=== PATIENT | male | born 1955 | race Caucasian/White ===

== ENCOUNTER 2017-04-06 16:27 | Emergency (ER) | payer MEDICARE ==
[~2017-04-06 16:27] MED LIST: Sodium Chloride 0.9% 1,000 ML BAG ONE
[2017-04-06] MEDS ORDERED: Aspirin 325 MG TAB ONE (16:43)
[2017-04-06] MEDS ORDERED: Multivit, Adult Inj 10 ML VIAL ONE (16:59)
[2017-04-06 17:23] LABS: #Basophils 0.1 thou/uL (0.0-0.2); #Eosinphils 0.1 thou/uL (0.0-0.7); #Lymphocytes 2.2 thou/uL (1.20-3.40); #Monocytes 0.4 thou/uL (0.11-0.59); #Neutrophils 3.4 thou/uL (1.40-6.50); %Basophils 1.3 % (0.0-1.0); %Eosinophils 1.8 % (0.0-10.0); %Lymphocytes 35.9 % (21.0-51.0); %Monocytes 6.7 % (0.0-10.0); %Neutrophils 54.3 % (42.0-75.0); Hemoglobin 12.3 g/dL (14.0-18.0); Mean Corpuscular HGB CONC 36.3 g/dL (32.0-36.0); Mean Corpuscular Hemoglobin 34.7 pg (27.0-31.0); Mean Corpuscular Volume 95.5 fl (80.0-94.0); Platelet Count 166 thou/uL (130-400); RBC Distribution Width 10.7 % (11.5-14.5); Red Blood Cell (RBC) Count 3.56 mill/uL (4.70-6.10); White Blood Cell (WBC) Count 6.2 thou/uL (4.8-10.8)
--- NOTE | 2017-04-06 17:24 | RAD ---
EXAM: CHEST ONE VIEW 04/06/17 HISTORY: Chest pain. COMPARISON: 08/20/16. FINDINGS: Portable upright chest: Normal cardiac silhouette. Pulmonary vessels and hilum are normal. Costophrenic angles are clear. No masses or consolidation. No pneumothorax or osseous abnormalities. Possible left sided hernia with air attenuation, projecting over the left heart border. There are old healed right rib fractures. IMPRESSION: 1. No acute cardiopulmonary process. 2. Possible left sided hiatal hernia. Two view chest radiograph is recommended. POS: [facility]
[2017-04-06 17:38] LABS: Alcohol 165 mg/dL (Less than 10); Anion Gap 14 mmol/L (10-20); BUN (Urea Nitrogen) 7 mg/dL (8.4-25.7); Calc. Creatinine Clearance 0 mL/min (70-130); Calcium 7.8 mg/dL (7.8-10.44); Carbon Dioxide 19 mmol/L (23-31); Chloride 99 mmol/L (98-107); Estimated GFR-MDRD Greater than 90; Glucose 71 mg/dL (80-115); Potassium 3.4 mmol/L (3.5-5.1); Sodium 129 mmol/L (136-145)
[2017-04-06 17:45] LABS: CKMB 0.6 ng/mL (0-6.6); Troponin I Less than 0.010 ng/mL (< 0.028)
[2017-04-06 18:32] LABS: Amphetamine Not Detected (NotDetected); Barbiturates Screen Detected (NotDetected); Benzodiazepine Screen Not Detected (NotDetected); Cocaine Metabolite Screen Not Detected (NotDetected); Medtox Control Line Valid? VALID (VALID); Methadone Not Detected (NotDetected); Methamphetamine Not Detected (NotDetected); Opiate Screen Not Detected (NotDetected); Oxycodone Screen Not Detected (NotDetected); Phencyclidine (PCP) Not Detected (NotDetected); THC/Cannabinoid Screen Not Detected (NotDetected); Tricyclic Screen Not Detected (NotDetected)
== END 2017-04-06 19:34 | disposition home or self-care (01) ==
LOC: MADERS 16:27
DX: F10.129 Alcohol abuse with intoxication, unspecified (principal); Y90.6 Blood alcohol level of 120-199 mg/100 ml; F17.210 Nicotine dependence, cigarettes, uncomplicated; I63.9 Cerebral infarction, unspecified; Z79.899 Other long term (current) drug therapy
CPT/HCPCS: 36415; 71010; 80048; 80306; 80307; 82553; 83880; 84484; 85025; 93005; 96365; 96366; J7050

== ENCOUNTER 2017-09-17 12:05 | Outpatient (CLI) | payer MEDICARE ==
[2017-09-17 18:56] LABS: Folate (Folic Acid) 14.8 ng/mL (7.0-31.4)
[2017-09-18 08:10] LABS: Follow-up Chemistry Comp? YES; Follow-up Result - Chemistry REPORT FAXED
== END 2017-09-17 12:06 | disposition home or self-care (01) ==
LOC: MADLAB 12:05
PROVIDERS: ATTEND Family Medicine
DX: D75.89 Other specified diseases of blood and blood-forming organs (principal)
CPT/HCPCS: 36415; 82607; 82746

== ENCOUNTER 2019-07-07 17:41 | Emergency (ER) | payer MEDICARE ==
[2019-07-07] MEDS ORDERED: Dextrose 5 %-0.45 % NaCl 1,000 ML ONE (17:56)
[2019-07-07] MEDS ORDERED: Thiamine HCl 200 MG/2 ML VIAL ONE (17:56)
[2019-07-07] MEDS ORDERED: Multivit, Adult Inj 10 ML VIAL ONE (17:56)
[2019-07-07 18:02] LABS: #Basophils 0.1 thou/uL (0.0-0.2); #Eosinphils 0.2 thou/uL (0.0-0.7); #Lymphocytes 2.8 thou/uL (1.20-3.40); #Monocytes 0.6 thou/uL (0.11-0.59); #Neutrophils 3.2 thou/uL (1.40-6.50); %Basophils 1.8 % (0.0-1.0); %Eosinophils 3.1 % (0.0-10.0); %Lymphocytes 40.5 % (21.0-51.0); %Monocytes 8.3 % (0.0-10.0); %Neutrophils 46.4 % (42.0-75.0); Hemoglobin 12.4 g/dL (14.0-18.0); Mean Corpuscular HGB CONC 35.5 g/dL (32.0-36.0); Mean Corpuscular Hemoglobin 32.7 pg (27.0-31.0); Mean Corpuscular Volume 92.1 fL (78.0-98.0); Mean Platelet Volume 5.9 fL (7.4-10.4); Platelet Count 222 thou/uL (130-400); Red Blood Cell (RBC) Count 3.78 mill/uL (4.70-6.10)
--- NOTE | 2019-07-07 18:12 | RAD ---
PORTABLE CHEST: HISTORY: Chest pain. COMPARISON: 08/17/2017 FINDINGS: Heart size and mediastinum are within normal limits. Lungs are clear of any infiltrative process. T here are no significant bony findings. IMPRESSION: No active intrathoracic disease. POS: [facility]
[2019-07-07 18:17] LABS: Amphetamine Not Detected (NotDetected); Barbiturates Screen Not Detected (NotDetected); Benzodiazepine Screen Not Detected (NotDetected); Cocaine Metabolite Screen Not Detected (NotDetected); Medtox Control Line Valid? VALID (VALID); Methadone Not Detected (NotDetected); Methamphetamine Not Detected (NotDetected); Opiate Screen Not Detected (NotDetected); Oxycodone Screen Not Detected (NotDetected); Phencyclidine (PCP) Not Detected (NotDetected); THC/Cannabinoid Screen Not Detected (NotDetected); Tricyclic Screen Not Detected (NotDetected)
[2019-07-07 18:18] LABS: ALT (SGPT) 11 U/L (8-55); AST (SGOT) 25 U/L (5-34); Acetaminophen Less than 6.0 mcg/mL (10.0-30.0); Alcohol 224 mg/dL (Less than 10); Alkaline Phosphatase 54 U/L (40-150); Anion Gap 17 mmol/L (10-20); BUN (Urea Nitrogen) 8 mg/dL (8.4-25.7); Bilirubin, Total 0.4 mg/dL (0.2-1.2); Calc. Creatinine Clearance 0 mL/min (70-130); Calcium 8.7 mg/dL (7.8-10.44); Carbon Dioxide 19 mmol/L (23-31); Chloride 96 mmol/L (98-107); Estimated GFR-MDRD Greater than 90; Globulin 4.1 g/dL (2.4-3.5); Glucose 85 mg/dL (80-115); Potassium 3.9 mmol/L (3.5-5.1); Protein, Total 8.1 g/dL (5.8-8.1); Salicylate Less than 8.0 mg/dL (15.0-30.0); Sodium 128 mmol/L (136-145)
[2019-07-07 18:19] LABS: CK (CPK) 66 U/L (30-200); Lipase 40 U/L (8-78)
[2019-07-07] MEDS ORDERED: Aspirin Chewable 81 MG TAB ONE (18:47)
== END 2019-07-07 20:26 | disposition short-term general hospital (02) ==
LOC: MADERS 17:41
DX: R07.89 Other chest pain (principal); E87.1 Hypo-osmolality and hyponatremia; I10 Essential (primary) hypertension; J44.9 Chronic obstructive pulmonary disease, unspecified; Z86.73 Personal history of transient ischemic attack (TIA), and cerebral infarction without residual deficits; F17.210 Nicotine dependence, cigarettes, uncomplicated; Z79.899 Other long term (current) drug therapy
CPT/HCPCS: 71045; 80053; 80306; 80307; 82550; 83690; 84484; 85025; 93005; 96365; J3411; J7042

== ENCOUNTER 2019-10-04 13:15 | Emergency (ER) | payer MEDICARE ==
[2019-10-04] MEDS ORDERED: Acetaminophen 650 MG Suppository ONE (13:35)
[2019-10-04] MEDS ORDERED: HYDROcodone/Acetaminophen 5/325 mg Tablet ONE (13:35)
[2019-10-04] MEDS ORDERED: Acetaminophen 325 MG TAB ONE (13:35)
[2019-10-04] MEDS ORDERED: Dexamethasone 4 MG TAB ONE (13:41)
--- NOTE | 2019-10-04 13:47 | RAD ---
RADIOGRAPH CHEST 2 VIEW: DATE: 10/04/2019 HISTORY: 63-year-old male with hypoxia, cough, and fever. FINDINGS: There is hyperinflation of the lungs, consistent with COPD. There is no evidence of airspace density, pulmonary edema, cardiomegaly, pleural effusion, or pneumothorax. IMPRESSION: 1) No acute cardiopulmonary findings. 2) emphysema.
[2019-10-04] MEDS ORDERED: Azithromycin 250 MG TAB ONE (14:17)
[2019-10-04] MEDS ORDERED: cefTRIAXone\\ROCEPHIN 1 GM VIAL ONE (14:17)
[2019-10-04] MEDS ORDERED: Lidocaine 1% 20 ML MDV ONE (14:18)
== END 2019-10-04 14:55 | disposition home or self-care (01) ==
LOC: MADERS 13:15
DX: J18.9 Pneumonia, unspecified organism (principal); J44.1 Chronic obstructive pulmonary disease with (acute) exacerbation; I10 Essential (primary) hypertension; F17.210 Nicotine dependence, cigarettes, uncomplicated; Z79.899 Other long term (current) drug therapy; Z86.73 Personal history of transient ischemic attack (TIA), and cerebral infarction without residual deficits
CPT/HCPCS: 71046; 87804; 96372; J0696; J2001; J7620; J8540

== ENCOUNTER 2019-10-11 14:19 | Emergency (ER) | payer MEDICARE ==
--- NOTE | 2019-10-11 15:23 | RAD ---
EXAM: Chest PA and lateral: HISTORY: Cough COMPARISON: 10/04/2019 FINDINGS: Heart: Normal cardiac silhouette Aorta: Unremarkable Pulmonary vessels: Normal Costophrenic angles: Costophrenic angles are clear. Lungs: Hyperinflation with chronic changes. Pneumothorax: No pneumothorax Osseous structures: Old right rib fractures. IMPRESSION: 1. No acute cardiopulmonary process. 2. Emphysema. Hyperinflation. Chronic changes.
[2019-10-11 15:56] LABS: #Basophils 0.1 thou/uL (0.0-0.2); #Lymphocytes 1.5 thou/uL (1.20-3.40); #Monocytes 1.1 thou/uL (0.11-0.59); #Neutrophils 9.6 thou/uL (1.40-6.50); %Basophils 0.4 % (0.0-1.0); %Eosinophils 0.3 % (0.0-10.0); %Lymphocytes 11.9 % (21.0-51.0); %Monocytes 9.2 % (0.0-10.0); %Neutrophils 78.1 % (42.0-75.0); Hemoglobin 15.3 g/dL (14.0-18.0); Mean Corpuscular HGB CONC 31.8 g/dL (32.0-36.0); Mean Corpuscular Volume 97.6 fL (78.0-98.0); Mean Platelet Volume 6.2 fL (7.4-10.4); Platelet Count 301 thou/uL (130-400); RBC Distribution Width 10.8 % (11.5-14.5); Red Blood Cell (RBC) Count 4.92 mill/uL (4.70-6.10); White Blood Cell (WBC) Count 12.3 thou/uL (4.8-10.8)
[2019-10-11] MEDS ORDERED: Sodium Chloride 0.9% 1,000 ML ONE (16:06)
[2019-10-11] MEDS ORDERED: methylPREDNISolone Sod Succ/PF 125 MG/2 ML VIAL ONE (16:06)
[2019-10-11 16:12] LABS: ALT (SGPT) 23 U/L (8-55); AST (SGOT) 21 U/L (5-34); Albumin 4.1 g/dL (3.4-4.8); Alkaline Phosphatase 75 U/L (40-110); Anion Gap 19 mmol/L (10-20); BUN (Urea Nitrogen) 13 mg/dL (8.4-25.7); Bilirubin, Total 0.9 mg/dL (0.2-1.2); Calc. Creatinine Clearance 0 mL/min (70-130); Carbon Dioxide 25 mmol/L (23-31); Chloride 97 mmol/L (98-107); Estimated GFR-MDRD 80; Glucose 83 mg/dL (80-115); Potassium 4.2 mmol/L (3.5-5.1); Protein, Total 9.1 g/dL (5.8-8.1); Sodium 137 mmol/L (136-145)
[2019-10-11] MEDS ORDERED: Promethazine DM 6.25-15mg/5ml 120 ML BOT ONE (17:32)
== END 2019-10-11 18:39 | disposition home or self-care (01) ==
LOC: MADERS 14:19
DX: J44.1 Chronic obstructive pulmonary disease with (acute) exacerbation (principal); I10 Essential (primary) hypertension; F17.210 Nicotine dependence, cigarettes, uncomplicated; Z79.899 Other long term (current) drug therapy; Z79.51 Long term (current) use of inhaled steroids
CPT/HCPCS: 71046; 80053; 85025; 87804; 96365; 96375; J1956; J2930; J7050; J7620

== ENCOUNTER 2020-10-14 15:38 | Emergency (ER) | payer MEDICARE ==
--- NOTE | 2020-10-14 16:28 | RAD ---
CHEST 1 VIEW: Date: 10/14/2020 INDICATION: History of dyspnea. COMPARISON: Prior exam dated 10/11/2019. FINDINGS: The lungs are mildly hyperexpanded but clear. No acute air space opacity is evident. Heart size is no rmal. No pleural effusion or pneumothorax is evident. No acute osseous abnormality is evident. IMPRESSION: No acute abnormality. Stable chronic lung changes. POS: [facility]
[2020-10-14 16:54] LABS: #Basophils 0.2 thou/uL (0.0-0.2); #Eosinphils 0.9 thou/uL (0.0-0.7); #Lymphocytes 2.2 thou/uL (1.20-3.40); #Monocytes 0.8 thou/uL (0.11-0.59); #Neutrophils 4.2 thou/uL (1.40-6.50); %Lymphocytes 26.9 % (21.0-51.0); %Monocytes 9.6 % (0.0-10.0); %Neutrophils 50.4 % (42.0-75.0); Hemoglobin 13.5 g/dL (14.0-18.0); Mean Corpuscular HGB CONC 34.1 g/dL (32.0-36.0); Mean Corpuscular Hemoglobin 32.8 pg (27.0-31.0); Mean Corpuscular Volume 96.2 fL (78.0-98.0); Mean Platelet Volume 6.6 fL (7.4-10.4); Platelet Count 197 thou/uL (130-400); RBC Distribution Width 10.4 % (11.5-14.5); Red Blood Cell (RBC) Count 4.11 mill/uL (4.70-6.10); White Blood Cell (WBC) Count 8.3 thou/uL (4.8-10.8)
[2020-10-14 17:08] LABS: ALT (SGPT) 18 U/L (8-55); AST (SGOT) 24 U/L (5-34); Albumin 4.1 g/dL (3.4-4.8); Alkaline Phosphatase 61 U/L (40-110); Anion Gap 16 mmol/L (10-20); BUN (Urea Nitrogen) 13 mg/dL (8.4-25.7); Bilirubin, Total 0.4 mg/dL (0.2-1.2); Calc. Creatinine Clearance 0 mL/min (70-130); Calcium 9.8 mg/dL (7.8-10.44); Carbon Dioxide 24 mmol/L (23-31); Chloride 103 mmol/L (98-107); Estimated GFR-MDRD 80; Globulin 4.1 g/dL (2.4-3.5); Glucose 91 mg/dL (80-115); Potassium 4.1 mmol/L (3.5-5.1); Protein, Total 8.2 g/dL (5.8-8.1); Sodium 139 mmol/L (136-145)
[2020-10-14] MEDS ORDERED: Albuterol 200 PUFF (6.7GM INHALER) ONE (18:44)
[2020-10-14] MEDS ORDERED: predniSONE 20 MG TAB ONE (19:21)
[2020-10-14] MEDS ORDERED: Azithromycin 250 MG TAB ONE (19:21)
== END 2020-10-14 19:28 | disposition home or self-care (01) ==
LOC: MADERS 15:38
DX: J44.1 Chronic obstructive pulmonary disease with (acute) exacerbation (principal); E78.5 Hyperlipidemia, unspecified; E78.00 Pure hypercholesterolemia, unspecified; I10 Essential (primary) hypertension; F17.210 Nicotine dependence, cigarettes, uncomplicated; Z86.73 Personal history of transient ischemic attack (TIA), and cerebral infarction without residual deficits; Z79.82 Long term (current) use of aspirin; Z79.899 Other long term (current) drug therapy
CPT/HCPCS: 36415; 71045; 80053; 83880; 84484; 85025; 93005; J7512

== ENCOUNTER 2020-10-28 15:32 | Inpatient (IN) | payer MEDICARE ==
[2020-10-28] MEDS ORDERED: methylPREDNISolone Sod Succ/PF 125 MG/2 ML VIAL ONE (16:05)
[2020-10-28] MEDS ORDERED: Albuterol 200 PUFF (6.7GM INHALER) ONE (16:06)
[2020-10-28 16:10] LABS: #Basophils 0.1 thou/uL (0.0-0.2); #Eosinphils 0.9 thou/uL (0.0-0.7); #Lymphocytes 2.2 thou/uL (1.20-3.40); #Monocytes 0.7 thou/uL (0.11-0.59); #Neutrophils 3.7 thou/uL (1.40-6.50); %Basophils 1.6 % (0.0-1.0); %Eosinophils 11.9 % (0.0-10.0); %Lymphocytes 28.2 % (21.0-51.0); %Monocytes 9.3 % (0.0-10.0); Hemoglobin 15.2 g/dL (14.0-18.0); Mean Corpuscular HGB CONC 33.5 g/dL (32.0-36.0); Mean Corpuscular Hemoglobin 31.7 pg (27.0-31.0); Mean Corpuscular Volume 94.6 fL (78.0-98.0); Mean Platelet Volume 6.3 fL (7.4-10.4); Platelet Count 267 thou/uL (130-400); RBC Distribution Width 10.4 % (11.5-14.5); Red Blood Cell (RBC) Count 4.79 mill/uL (4.70-6.10); White Blood Cell (WBC) Count 7.6 thou/uL (4.8-10.8)
--- NOTE | 2020-10-28 16:16 | RAD ---
RADIOGRAPH CHEST 1 VIEW: DATE: 10/28/2020 HISTORY: 64-year-old male with dyspnea FINDINGS: There is at least mild hyperinflation of the lungs, consistent with COPD. There is no evidence of air space density, pulmonary edema, or pneumothorax. The lateral costophrenic angles are not effaced. There are old, healed fracture deformities involving the posterior lateral aspects of the right fifth and sixth ribs. IMPRESSION: 1) No acute pulmonary findings. 2) emphysema. 3) old right rib fracture deformities.
[2020-10-28 16:27] LABS: ALT (SGPT) 20 U/L (8-55); AST (SGOT) 24 U/L (5-34); Albumin 4.3 g/dL (3.4-4.8); Alkaline Phosphatase 67 U/L (40-110); Anion Gap 14 mmol/L (10-20); BUN (Urea Nitrogen) 11 mg/dL (8.4-25.7); Bilirubin, Total 0.5 mg/dL (0.2-1.2); CK (CPK) 115 U/L (30-200); Calc. Creatinine Clearance 0 mL/min (70-130); Calcium 9.9 mg/dL (7.8-10.44); Carbon Dioxide 27 mmol/L (23-31); Chloride 101 mmol/L (98-107); Globulin 4.3 g/dL (2.4-3.5); Glucose 92 mg/dL (80-115); Protein, Total 8.6 g/dL (5.8-8.1); Sodium 138 mmol/L (136-145)
[2020-10-28] MEDS ORDERED: Magnesium 2 GM/50 ML BAG (IN WATER) ONE (17:07)
[2020-10-28 18:04] LABS: Base Excess-Venous 2.1 mmol/L (-2.0 to 3.0); Bicarbonate (HCO3v) 28.7 mmol/L (22.0-28.0); CO2 Tension (PvCO2) 50.9 mmHg (40.0-50.0); Chloride 104 mmol/L (98-107); Hemoglobin - Calc 15.3 g/dL (14.0-18.0); Potassium 4.3 mmol/L (3.5-5.1); Sodium 138 mmol/L (138-145); T. Carbon Dioxide 30.2 mmol/L (22.0-28.0); vO2 Saturation-calc 98.2 % (60.0-85.0)
[2020-10-28] MEDS ORDERED: Ondansetron ODT 4 MG TAB PO PRN (20:38)
[2020-10-28] MEDS ORDERED: Acetaminophen 325 MG TAB PO PRN (20:38)
[2020-10-28] MEDS ORDERED: Azithromycin 250 MG TAB PO SCH ×2 (21:30)
[2020-10-28] MEDS: Atorvastatin Calcium 40 MG TAB PO SCH (23:11)
[2020-10-28] MEDS: levETIRAcetam 500 mg/5 ml Oral Solution PO SCH (23:12)
[2020-10-28 23:22] VITALS: BMI 20.9
[2020-10-29 06:17] LABS: Anion Gap 16 mmol/L (10-20); BUN (Urea Nitrogen) 14 mg/dL (8.4-25.7); Calc. Creatinine Clearance 76 mL/min (70-130); Calcium 9.4 mg/dL (7.8-10.44); Carbon Dioxide 22 mmol/L (23-31); Chloride 101 mmol/L (98-107); Glucose 173 mg/dL (80-115); Potassium 3.9 mmol/L (3.5-5.1); Sodium 135 mmol/L (136-145)
[2020-10-29 07:11] LABS: Hemoglobin 13.8 g/dL (14.0-18.0); Mean Corpuscular HGB CONC 33.2 g/dL (32.0-36.0); Mean Corpuscular Hemoglobin 31.6 pg (27.0-31.0); Mean Corpuscular Volume 95.1 fL (78.0-98.0); Platelet Count 239 thou/uL (130-400); RBC Distribution Width 10.3 % (11.5-14.5); Red Blood Cell (RBC) Count 4.35 mill/uL (4.70-6.10); White Blood Cell (WBC) Count 7.8 thou/uL (4.8-10.8)
[2020-10-29 07:12] LABS: Mean Platelet Volume 6.8 fL (7.4-10.4)
[2020-10-29 07:29] LABS: #Lymphocytes 0.8 thou/uL (1.20-3.40); #Monocytes 0.2 thou/uL (0.11-0.59); #Neutrophils 6.8 thou/uL (1.40-6.50); %Basophils 0.5 % (0.0-1.0); %Eosinophils 0.1 % (0.0-10.0); %Lymphocytes 11.7 % (21.0-51.0); %Monocytes 1.6 % (0.0-10.0); %Neutrophils 86.1 % (42.0-75.0)
[2020-10-29] MEDS: Enoxaparin Sodium 40 MG/0.4 ML SYRINGE SC SCH (08:51)
[2020-10-29] MEDS: Lisinopril 5 MG TAB PO SCH (08:53)
[2020-10-29] MEDS: predniSONE 20 MG TAB PO SCH (08:54)
[2020-10-29] MEDS: levETIRAcetam 500 mg/5 ml Oral Solution PO SCH ×2 (08:54→21:16)
[2020-10-29] MEDS ORDERED: Azithromycin 250 MG TAB PO SCH (09:00)
--- NOTE | 2020-10-29 09:21 | HP ---
HISTORY OF PRESENT ILLNESS: The patient is a 64-year-old male with a history of heavy tobacco abuse and COPD, who presented to the emergency department due to progressive worsening shortness of breath. The patient states that his symptoms have been progressing over the last 2 weeks. He denies any particular triggers as far as he is aware aside from continued tobacco abuse. Denies any recent upper respiratory infections. No sick contacts. Of note, the patient was seen in the emergency department approximately 2 weeks ago for shortness of breath and was treated essentially as a COPD exacerbation and discharged home. The patient states that he did not notice any improvement with that treatment. At that time, he was discharged with azithromycin, prednisone, and a refill of albuterol inhaler. Upon presentation to the ER yesterday, the patient did receive 2 breathing treatments. He received magnesium sulfate as well as Solu-Medrol; however, the patient still continued to report shortness of breath, so the decision was made to admit him. PAST MEDICAL HISTORY: 1. Chronic obstructive pulmonary disease. 2. Hypertension. 3. Seizure disorder. 4. Alcohol abuse. 5. Tobacco abuse. PAST SURGICAL HISTORY: 1. Esophageal surgery. 2. Tongue biopsy. CURRENT MEDICATIONS: 1. Levetiracetam 750 mg p.o. b.i.d. 2. Lisinopril 5 mg p.o. daily. 3. Atorvastatin 40 mg p.o. at bedtime. 4. Aspirin 325 mg p.o. daily. ALLERGIES: NO KNOWN DRUG ALLERGIES. FAMILY HISTORY: Significant for heart attack in his father and history of seizure disorder and stroke in his brother. SOCIAL HISTORY: The patient lives at home with his and grandson. He smokes one pack per day, although, he reports that he is trying to quit. Regarding alcohol use, he admits to drinking 6 packs of beer per day. States that his last drink was the day before yesterday. REVIEW OF SYSTEMS: GENERAL: The patient denies fever, chills, or night sweats. HEENT: The patient denies vision changes, eye pain, or sore throat. CARDIOVASCULAR: The patient denies chest pain or palpitations. RESPIRATORY: The patient complains of shortness of breath and cough. GASTROINTESTINAL: The patient denies abdominal pain, nausea, vomiting, or diarrhea. GENITOURINARY: The patient denies any urinary symptoms. NEUROLOGICAL: The patient denies weakness, numbness, or tingling. PSYCHIATRIC: The patient denies anxiety or depression. SKIN: The patient denies rashes or lesions. PHYSICAL EXAMINATION: VITAL SIGNS: Temperature 97.8, pulse 71, respirations 18, oxygen 93% on room air, blood pressure 123/71. GENERAL: The patient is alert and oriented x3, in no distress. He is cachectic in appearance with wasting of facial muscles. HEENT: Normocephalic, atraumatic. Moist mucous membranes. NECK: Supple with no thyromegaly or lymphadenopathy. CARDIOVASCULAR: Regular rate and rhythm. No murmurs, rubs, or gallops. LUNGS: Diffuse wheezing heard throughout. Normal respiratory effort. No distress noted. No use of accessory muscles of respiration. ABDOMEN: Soft, nontender to palpation, nondistended. EXTREMITIES: Normal bulk and tone. No cyanosis or edema. SKIN: No rash or lesions. NEUROLOGICAL: Cranial nerves 2 through 12 intact grossly. No focal motor deficits. PSYCHIATRIC: Appropriate mood and affect. LABORATORY DATA: CBC shows white blood cell count of 7.8, hemoglobin 13.8, hematocrit 41.1, platelet count of 239. BMP; sodium 135, potassium 3.9, chloride 101, carbon dioxide 22, BUN 14, creatinine 0.86, glucose 173. Chest x-ray on admission shows no acute pulmonary findings, emphysema, and old right rib fracture deformities. COVID test is pending. ASSESSMENT AND PLAN: 1. Acute hypoxic respiratory failure. The patient was examined at the bedside. He was on 2 L of oxygen. The oxygen was taken off and the patient desaturated to 86%. We will continue oxygen as needed and wean as tolerated. We will also convert the patient from observation to inpatient status for this reason. This is likely related to chronic obstructive pulmonary disease exacerbation; however, COVID test has been sent and is pending. We will keep the patient on isolation precautions until results return. 2. Chronic obstructive pulmonary disease exacerbation. We will change from DuoNeb to Combivent inhaler for scheduled use twice daily. We will also add on a Proventil inhaler to be used every 4 hours as needed for continued shortness of breath. We will continue steroids. We will also continue antibiotics. Azithromycin was added initially; however, after prior ER visit, we will change to a respiratory fluoroquinolones instead and also tobacco cessation was strongly encouraged. 3. Hypertension. We will resume the patient's home antihypertensives. Blood pressures will be monitored as per routine. 4. Seizure disorder. The patient's Keppra will be resumed. 5. Tobacco abuse. Counseling has been provided. We will also add on nicotine patch to hopefully reduce cravings while the patient is hospitalized. 6. Alcohol abuse. The patient admits to heavy alcohol use. Last drink was about 2 days ago. At this point, we will initiate the ASE protocol with benzodiazepines to be used to treat any withdrawal symptoms. The patient states that his last seizure was 7 years ago; however, it is not clear if this is related to alcohol withdrawal or to seizure disorder. We will continue to monitor as per routine. 7. Code status, full code. 8. DVT prophylaxis, Lovenox. Job ID: [id number]
[2020-10-29] MEDS ORDERED: Thiamine HCl 200 MG/2 ML VIAL IM SCH (09:45)
[2020-10-29] MEDS: Nicotine 21 MG PATCH TD SCH (09:53)
[2020-10-29] MEDS: guaiFENesin ER 600 MG TAB PO SCH ×2 (09:53→21:17)
[2020-10-29] MEDS ORDERED: Diazepam 5 MG TAB PO SCH (10:00)
[2020-10-29] MEDS ORDERED: Magnesium 2 GM/50 ML BAG (IN WATER) ONE (11:26)
[2020-10-29] MEDS: Folic Acid 1 MG TAB PO SCH (11:31)
[2020-10-29] MEDS: Multivit, Therapeutic 1 TAB PO SCH (11:31)
[2020-10-29] MEDS ORDERED: Diazepam 5 MG TAB PO PRN (14:00)
[2020-10-29] MEDS: Albuterol 200 PUFF (6.7GM INHALER) INH PRN ×2 (14:37→21:16)
[2020-10-29] MEDS: Ipratropium/Albuterol Sulfate 4 GM AER IH SCH ×2 (17:25→21:19)
[2020-10-29 18:01] LABS: SARS-CoV-2 MS2 Positive; SARS-CoV-2 N Gene Negative; SARS-CoV-2 S Gene Negative; SARS-CoV-2 by NAA Not Detected (NotDetected); SARS-CoV-2 orf1ab Negative
[2020-10-29] MEDS: Atorvastatin Calcium 40 MG TAB PO SCH (21:18)
[2020-10-30] MEDS ORDERED: Diazepam 5 MG TAB PO PRN (02:00)
[2020-10-30] MEDS: levETIRAcetam 500 mg/5 ml Oral Solution PO SCH ×2 (09:21→21:46)
[2020-10-30] MEDS: Enoxaparin Sodium 40 MG/0.4 ML SYRINGE SC SCH (09:22)
[2020-10-30] MEDS: Multivit, Therapeutic 1 TAB PO SCH (09:23)
[2020-10-30] MEDS: Nicotine 21 MG PATCH TD SCH (09:23)
[2020-10-30] MEDS: Magnesium Oxide 400 MG TAB PO SCH (09:23)
[2020-10-30] MEDS: guaiFENesin ER 600 MG TAB PO SCH ×2 (09:23→21:45)
[2020-10-30] MEDS: Lisinopril 5 MG TAB PO SCH (09:24)
[2020-10-30] MEDS: Thiamine 100 MG TAB PO SCH (09:24)
[2020-10-30] MEDS: Folic Acid 1 MG TAB PO SCH (09:24)
[2020-10-30] MEDS: predniSONE 20 MG TAB PO SCH (09:24)
[2020-10-30] MEDS: Ipratropium/Albuterol Sulfate 4 GM AER IH SCH ×4 (09:25→21:46)
[2020-10-30] MEDS: Albuterol 200 PUFF (6.7GM INHALER) INH PRN (09:26)
[2020-10-30] MEDS: Atorvastatin Calcium 40 MG TAB PO SCH (21:46)
[2020-10-31] MEDS: Albuterol 200 PUFF (6.7GM INHALER) INH PRN (05:29)
[2020-10-31] MEDS: levETIRAcetam 500 mg/5 ml Oral Solution PO SCH ×2 (08:32→20:06)
[2020-10-31] MEDS: Enoxaparin Sodium 40 MG/0.4 ML SYRINGE SC SCH (08:32)
[2020-10-31] MEDS: Multivit, Therapeutic 1 TAB PO SCH (08:33)
[2020-10-31] MEDS: Lisinopril 5 MG TAB PO SCH (08:33)
[2020-10-31] MEDS: Thiamine 100 MG TAB PO SCH (08:33)
[2020-10-31] MEDS: Nicotine 21 MG PATCH TD SCH (08:33)
[2020-10-31] MEDS: Magnesium Oxide 400 MG TAB PO SCH (08:33)
[2020-10-31] MEDS: Folic Acid 1 MG TAB PO SCH (08:34)
[2020-10-31] MEDS: predniSONE 20 MG TAB PO SCH (08:34)
[2020-10-31] MEDS: guaiFENesin ER 600 MG TAB PO SCH ×2 (08:34→20:06)
[2020-10-31] MEDS: Ipratropium/Albuterol Sulfate 4 GM AER IH SCH ×4 (08:35→20:07)
[2020-10-31] MEDS: Atorvastatin Calcium 40 MG TAB PO SCH (20:06)
[2020-11-01] MEDS: levETIRAcetam 500 mg/5 ml Oral Solution PO SCH (09:31)
[2020-11-01] MEDS: predniSONE 20 MG TAB PO SCH (09:31)
[2020-11-01] MEDS: Multivit, Therapeutic 1 TAB PO SCH (09:32)
[2020-11-01] MEDS: Folic Acid 1 MG TAB PO SCH (09:32)
[2020-11-01] MEDS: guaiFENesin ER 600 MG TAB PO SCH (09:32)
[2020-11-01] MEDS: Magnesium Oxide 400 MG TAB PO SCH (09:32)
[2020-11-01] MEDS: Lisinopril 5 MG TAB PO SCH (09:32)
[2020-11-01] MEDS: Enoxaparin Sodium 40 MG/0.4 ML SYRINGE SC SCH (09:32)
[2020-11-01] MEDS: Thiamine 100 MG TAB PO SCH (09:32)
[2020-11-01] MEDS: Nicotine 21 MG PATCH TD SCH (09:33)
[2020-11-01] MEDS: Ipratropium/Albuterol Sulfate 4 GM AER IH SCH ×3 (09:33→17:38)
[2020-11-01 17:43] VITALS: BP 118/71; TEMP 98.8
--- NOTE | 2020-11-02 02:13 | DIS ---
DATE OF ADMISSION: 10/29/2020 DATE OF DISCHARGE: 11/01/2020 ADMITTING PHYSICIAN: Dr. Cabezas. REASON FOR ADMISSION: Shortness of breath, wheezing. CONDITION ON DISCHARGE: Stable. DISPOSITION: Home. DIAGNOSES: 1. Chronic obstructive pulmonary disease exacerbation. 2. Acute hypoxic respiratory failure, O2 requiring, improved. 3. Tobacco abuse. SECONDARY DIAGNOSES: 1. Hypertension. 2. Seizure disorder. 3. Alcohol abuse. No significant withdrawals. DISCHARGE INSTRUCTIONS: DIET: Low-salt, low-fat. ACTIVITIES: Ad luz. FOLLOWUP: Follow up with PCP/Dr. Rosales on November 07 at 1:15 at [facility]. HISTORY OF THE PRESENT ILLNESS AND HOSPITAL COURSE: Mr. Baldwin is a 64-year-old with a history of heavy tobacco abuse and COPD, presented to the ER on 10/28/2020, for progressively worsening shortness of breath. The patient has had progressively worsening symptoms over the past two weeks prior to admission. Further exam/evaluation in the ER showed WBC at 7.8, hemoglobin 13.8, hematocrit 41.1, BUN 14, creatinine 0.86. Chest x-ray on admission showed no acute pulmonary findings, emphysema, and old right rib fracture deformities. At the time of admission, the patient showed significant hypoxia, requiring O2. Upon admission, the patient's O2 saturation was stable at 93% on room air. He was empirically treated with Levaquin oral, steroid oral, and bronchodilator.During the course, the patient showed significant marked improvement of both oxygen level and overall respiratory status. He was weaned off easily with oxygen supplement. His O2 sats maintained on 90% to 92% on room air prior to discharge. Upon ambulation, he was noted to have O2 sats at 88% that easily goes to his baseline of low 90s upon resting. He remained febrile free during that course. There were no significant complications reported, thus he was discharged home on 11/01/2020. Labs during this hospitalization, on 10/29/2020, WBC 7.5, hemoglobin 13.8, hematocrit 41.1, platelets 239. COVID PCR not detected on 10/28/2020. Sodium 135, potassium 3.9, BUN 14, creatinine 0.86, estimated GFR 89, calcium 9.4. D-dimer 0.28. Vital signs prior to discharge, blood pressure 118/71, temperature 98.8, pulse 70, respirations 18, O2 saturation 92% on room air. Weight 133 pounds and 5 ounces, height 5 feet 7 inches. The patient was examined prior to discharge and was deemed hemodynamically stable to go back home at this nine. He is recommended to follow up with PCP in a week, sooner if concerns. Job ID: [id number]
== END 2020-11-01 18:30 | disposition home or self-care (01) | DRG 189 ==
LOC: MADERS 15:32 → MADMS 19:39 → UNDOADMIN 19:39 → MADMS 19:42 → OBSVTOIN 10-29 10:00
PROVIDERS: ADMIT Family Medicine; ATTEND Family Medicine
DX: J96.01 Acute respiratory failure with hypoxia (principal); J44.1 Chronic obstructive pulmonary disease with (acute) exacerbation; E78.00 Pure hypercholesterolemia, unspecified; I10 Essential (primary) hypertension; F17.210 Nicotine dependence, cigarettes, uncomplicated; G40.909 Epilepsy, unspecified, not intractable, without status epilepticus; F10.10 Alcohol abuse, uncomplicated; Z20.828 Contact with and (suspected) exposure to other viral communicable diseases; Z79.82 Long term (current) use of aspirin; Z79.51 Long term (current) use of inhaled steroids
CPT/HCPCS: 36415; 36416; 71045; 80048; 80053; 82330; 82550; 82803; 83880; 84484; 85025; 85379; 87635; 93005; 94640; 94760; G0378; J1650; J2930; J3411; J3475; J3490; J7512; J7620; U0003

== ENCOUNTER 2020-11-11 14:24 | Emergency (ER) | payer MEDICARE ==
--- NOTE | 2020-11-11 15:15 | RAD ---
XR Chest 1 View Portable HISTORY: Dyspnea COMPARISON: 10/28/2020 FINDINGS: The heart size is normal. Changes of COPD are again seen. The lungs are well expanded witho ut focal areas of consolidation, pneumothorax or pleural effusions. Old right-sided rib fractures again noted. IMPRESSION: No radiographic evidence of acute cardiopulmonary process.
[2020-11-11] MEDS ORDERED: Sodium Chloride 0.9% 250 ML 250 ML ONE (15:29)
[2020-11-11] MEDS ORDERED: Azithromycin 500 MG VIAL ONE (15:29)
[2020-11-11] MEDS ORDERED: Aspirin Chewable 81 MG TAB ONE (15:29)
[2020-11-11] MEDS ORDERED: Magnesium 2 GM/50 ML BAG (IN WATER) ONE (15:30)
[2020-11-11] MEDS ORDERED: cefTRIAXone\\ROCEPHIN 1 GM VIAL ONE (15:30)
[2020-11-11] MEDS ORDERED: methylPREDNISolone Sod Succ/PF 125 MG/2 ML VIAL ONE (15:30)
[2020-11-11 15:37] LABS: Anion Gap 14 mmol/L (10-20); BUN (Urea Nitrogen) 10 mg/dL (8.4-25.7); Bilirubin, Total 0.4 mg/dL (0.2-1.2); Calc. Creatinine Clearance 0 mL/min (70-130); Calcium 9.7 mg/dL (7.8-10.44); Carbon Dioxide 29 mmol/L (23-31); Chloride 102 mmol/L (98-107); Glucose 108 mg/dL (80-115); Potassium 4.3 mmol/L (3.5-5.1); Sodium 141 mmol/L (136-145)
[2020-11-11 15:38] LABS: ALT (SGPT) 25 U/L (8-55); AST (SGOT) 23 U/L (5-34); Albumin 3.9 g/dL (3.4-4.8); Alkaline Phosphatase 61 U/L (40-110); CK (CPK) 52 U/L (30-200); Globulin 3.7 g/dL (2.4-3.5); Protein, Total 7.6 g/dL (5.8-8.1)
[2020-11-11 15:39] LABS: #Basophils 0.1 thou/uL (0.0-0.2); #Lymphocytes 1.7 thou/uL (1.20-3.40); #Monocytes 0.5 thou/uL (0.11-0.59); #Neutrophils 5.2 thou/uL (1.40-6.50); %Basophils 1.3 % (0.0-1.0); %Eosinophils 12.2 % (0.0-10.0); %Lymphocytes 19.5 % (21.0-51.0); Hemoglobin 14.7 g/dL (14.0-18.0); Mean Corpuscular HGB CONC 34.4 g/dL (32.0-36.0); Mean Corpuscular Hemoglobin 32.4 pg (27.0-31.0); Mean Corpuscular Volume 94.2 fL (78.0-98.0); Mean Platelet Volume 6.4 fL (7.4-10.4); Platelet Count 226 thou/uL (130-400); RBC Distribution Width 9.9 % (11.5-14.5); Red Blood Cell (RBC) Count 4.53 mill/uL (4.70-6.10); White Blood Cell (WBC) Count 8.5 thou/uL (4.8-10.8)
== END 2020-11-11 18:23 | disposition short-term general hospital (02) ==
LOC: MADERS 14:24
DX: J44.1 Chronic obstructive pulmonary disease with (acute) exacerbation (principal); E78.5 Hyperlipidemia, unspecified; E78.00 Pure hypercholesterolemia, unspecified; I10 Essential (primary) hypertension; F17.210 Nicotine dependence, cigarettes, uncomplicated; Z79.82 Long term (current) use of aspirin; Z86.73 Personal history of transient ischemic attack (TIA), and cerebral infarction without residual deficits; Z79.899 Other long term (current) drug therapy
CPT/HCPCS: 36415; 71045; 80053; 82550; 83605; 84484; 85025; 87040; 93005; 94760; 96365; 96367; 96375; J0456; J0696; J2930; J3475; J7050; J7620

== ENCOUNTER 2020-12-19 18:03 | Inpatient (IN) | payer MEDICARE ==
[~2020-12-19 18:03] MED LIST changes: -Sodium Chloride 0.9% 1,000 ML BAG ONE; +Sodium Chloride 0.9% 100 ML BAG ONE
[2020-12-19] MEDS ORDERED: methylPREDNISolone Sod Succ/PF 125 MG/2 ML VIAL ONE (18:30)
[2020-12-19] MEDS ORDERED: Aspirin Chewable 81 MG TAB ONE (18:30)
[2020-12-19] MEDS ORDERED: Magnesium 2 GM/50 ML BAG (IN WATER) ONE (18:30)
--- NOTE | 2020-12-19 19:10 | RAD ---
AP CHEST: History: Dyspnea Comparison: 11-11-2020 FINDINGS: The lungs appear clear of infiltrate. No evidence of vascular congestion. Heart and mediastinum unrem arkable. IMPRESSION: No acute abnormalities. POS: [facility]
[2020-12-19] MEDS ORDERED: Azithromycin 500 MG VIAL ONE (19:33)
[2020-12-19] MEDS ORDERED: cefTRIAXone\\ROCEPHIN 1 GM VIAL ONE (19:33)
[2020-12-19 20:48] VITALS: BMI 20.5
[2020-12-19] MEDS ORDERED: Acetaminophen 325 MG TAB PO PRN (21:15)
[2020-12-19] MEDS ORDERED: Loperamide HCl 2 MG CAP PO PRN ×2 (21:41→21:42)
[2020-12-19] MEDS ORDERED: Ondansetron ODT 4 MG TAB PO PRN (21:41)
[2020-12-19] MEDS ORDERED: Bacteriostatic Water 30 ML VIAL FS PRN (21:45)
[2020-12-19] MEDS ORDERED: methylPREDNISolone Sod Succ 40 MG VIAL IVP SCH (22:00)
[2020-12-19] MEDS ORDERED: Diazepam 5 MG TAB PO PRN (23:24)
[2020-12-19] MEDS ORDERED: Diazepam 5 MG TAB PO SCH (23:30)
[2020-12-19] MEDS ORDERED: levETIRAcetam 500 mg/5 ml Oral Solution PO SCH (23:30)
[2020-12-20] MEDS: methylPREDNISolone Sod Succ 40 MG VIAL IVP SCH ×2 (02:00→10:10)
[2020-12-20] MEDS: Albuterol Sulfate 2.5 mg/3 ml Neb NEB PRN ×2 (02:00→13:13)
[2020-12-20] MEDS: Lisinopril 5 MG TAB PO SCH (08:23)
[2020-12-20] MEDS: Aspirin 325 mg Enteric Coated Tablet PO SCH (08:23)
[2020-12-20] MEDS: levETIRAcetam 500 mg/5 ml Oral Solution PO SCH ×2 (08:26→21:01)
[2020-12-20] MEDS: methylPREDNISolone Sod Succ/PF 125 MG/2 ML VIAL IVP SCH ×2 (14:55→21:04)
--- NOTE | 2020-12-20 18:54 | HP ---
REASON FOR ADMISSION: Persistent shortness of breath and wheezing. HISTORY OF PRESENT ILLNESS AND HOSPITAL COURSE: Mr. Baldwin is a 64-year-old male with significant history of COPD chronic tobacco use, chronic alcohol use, and seizure disorder. He presented to [facility] on December 19, 2020 complaining of shortness of breath that is worsening over the past four days. He reports that he woke up that morning around 4 a.m., having difficulty of breathing, but no significant chest pain. The patient had similar episodes in the recent past that ended up in the hospital two times over the past couple of months for similar reason of acute exacerbation of his chronic COPD. In the ER, he was noted to have acute mild respiratory distress that improved with treatment and was maintained on oxygen throughout the remainder of his day secondary to persistent hypoxemia. Of note, patient has never been on home O2 therapy. His chest x-ray showed no significant evidence of pneumonia. There was no evidence of underlying possible sepsis, pulmonary embolism, or acute coronary syndrome noted at the ER. Patient received [id number] mg IV push, magnesium sulfate injection x2 g x1, aspirin 324 mg p.o. and serial DuoNeb f nebulizer treatments. Zithromax and Rocephin were likewise initiated for empiric treatment. The patient's oxygen saturation is well maintained at 2 L per nasal cannula. After discussion of the above findings with the patient, it was recommended that he stays for inpatient management of COPD. The patient admits that he continued smoking at home and drinking beers,three bottles a day, almost on a daily basis. The last alcohol intake was reported a week ago with no significant withdrawal syndrome. The patient had a smooth overnight stay. When seen this morning, the patient reports he feels much better. He had another significant episode of shortness of breath at around 2 a.m., early this morning, and did fine after receiving the scheduled dose of Solu-Medrol IV. When evaluated, the patient is comfortably resting in bed, eating his breakfast. No family is present at bedside. The patient denies chest pain, pain with breathing or bloody sputum. He remains febrile free. No new issues reported at this time. PAST MEDICAL HISTORY: COPD, hypertension, seizure disorder, alcohol abuse, tobacco abuse, dyslipidemia. PAST SURGICAL HISTORY: Esophageal surgery, tongue biopsy. SOCIAL HISTORY: The patient lives at home with his and grandson. He currently smokes 4-5 cigarettes a day. Previously prior to the most recent hospitalization in October, he was smoking as much as a few packs per day. He drinks daily and has not had a drink over this past week. He has decreased drinking from six pack a day to three beers a day and the last one was a week ago. He denies illicit drug use. FAMILY HISTORY: Noncontributory. ALLERGIES: NO KNOWN ALLERGIES. CURRENT MEDICATIONS: 1. Lisinopril 5 mg p.o. daily. 2. Aspirin 325 mg p.o. daily. 3. Pravastatin 40 mg p.o. daily. 4. Albuterol as needed. 5. Levetiracetam 750 mg twice a day. REVIEW OF SYSTEMS: GENERAL: Denies fever, chills and loss of appetite. HEENT: Denies cold symptoms, acute visual changes, or hearing changes. RESPIRATORY: As per HPI. CARDIAC: Denies chest pain, orthopnea, palpitations. GI: No nausea, vomiting, abdominal pain, rectal bleeding, melena. GENITOURINARY: No dysuria, hematuria, frequency, or urgency. MUSCULOSKELETAL: Denies arthralgia or joint effusions. NEURO: Denies focal paralysis or paresthesia. Denies syncope. SKIN: Denies rashes, pruritus. PSYCH: Denies suicidal thoughts, ideations, hallucinations, insomnia. PHYSICAL EXAMINATION: VITAL SIGNS: Blood pressure 134/81, temperature 97.9, pulse 71, respirations 20, O2 saturation 97% at 3 L per nasal cannula. Weight 135 pounds and 6 ounces. Height 5 feet 8 inches. GENERAL: The patient is awake, alert, and oriented x3, not in acute distress. HEENT: Normocephalic, atraumatic. PERRL. Intact EOM. Anicteric sclerae. Oral mucosa is moist. NECK: Supple. Flat JVD. No bruit. CHEST: Normal excursion. Nonlabored breathing. LUNGS: Good air movements with prolonged expiratory phase. Faint expiratory wheezes and rhonchi in both lung perez. No rales, no crackles. CARDIAC: RRR. Normal S1 and S2. ABDOMEN: Flat, soft. Normoactive bowel sounds. Nondistended, nontender. No rebound or guarding. Negative CVA tenderness bilaterally. EXTREMITIES: No edema. No cyanosis. NEUROLOGIC: Nonfocal. Gait normal. DTRs 2+. SKIN: Intact, Good skin turgor. PSYCH: The patient is calm and cooperative, interacting appropriately.Appropriate mood and affect. LABORATORIES/TESTS: Chest x-ray, the lungs appear clear of infiltrate. No evidence of vascular congestion. Heart and mediastinum unremarkable. Labs: WBC 5.5, hemoglobin 14.3, hematocrit 42.6, platelets 205. Sodium 141, potassium 4.0, BUN 11, creatinine 0.93, lactic acid 1, glucose 91. LFTs within normal limits. Troponin 0.010. Urine negative. Serology; SARS COVID PCR, not detected. Influenza A and B, not detected. ASSESSMENT AND PLAN: 1. Acute hypoxic respiratory failure: Currently on 2-3 L of oxygen per nasal cannula continuously. The most recent COVID test is negative. He is febrile free. No signs of bacteremia or evidence of sepsis. Continue to closely monitor. To wean off oxygen supplement as tolerated. 2. Chronic obstructive pulmonary disease in acute exacerbation. Continue scheduled DuoNeb. Continue IV steroid and taper off appropriately. Continue IV antibiotics and change to oral once appropriate. Serial imaging studies if clinically indicated. 4. Hypertension, stable. Continue lisinopril. 5. Seizure disorder: Continue Keppra level. Seizure precautions. 6. Tobacco abuse. I offered nicotine patch, the patient declined. 7. Alcohol abuse. The patient admits to heavy alcohol use in the past. The most recent alcohol intake was a week ago. Denies history of withdrawal syndrome. To Initiate ASE protocol with Diazepam. 8. Deep venous thrombosis prophylaxis. SCDs. 9. Further recommendations depending on the hospital course. Estimated length of stay, 2 to 3 days Code status: Full code per patient's wishes.. Disposition: home with once appropriate. Time spent on this admission 35 minutes in examining the patient, reviewing the records and discussion of the current clinical status, management, prognosis and counseling. The patient was encouraged to ask questions. All his questions were answered to his satisfaction. Job ID: [id number] [facility]
[2020-12-20] MEDS ORDERED: FLU VACC QS2020-21(65YR UP)/PF 240 MCG/0.7 ML SYRINGE IM ONE (21:00)
[2020-12-20] MEDS: Atorvastatin Calcium 10 MG TAB PO SCH (21:02)
[2020-12-20] MEDS: cefTRIAXone\\ROCEPHIN 1 GM in Sodium Chloride 0.9% 100 ML IVPB SCH (21:07)
[2020-12-20] MEDS: Azithromycin 500 MG in Sodium Chloride 0.9% 250 ML 250 ML IVPB SCH (21:43)
[2020-12-21] MEDS ORDERED: Diazepam 5 MG TAB PO PRN (04:00)
[2020-12-21] MEDS: methylPREDNISolone Sod Succ/PF 125 MG/2 ML VIAL IVP SCH (05:33)
[2020-12-21] MEDS: Aspirin 325 mg Enteric Coated Tablet PO SCH (07:57)
[2020-12-21] MEDS: levETIRAcetam 500 mg/5 ml Oral Solution PO SCH ×2 (07:57→20:08)
[2020-12-21] MEDS: Lisinopril 5 MG TAB PO SCH (07:57)
[2020-12-21] MEDS: cefTRIAXone\\ROCEPHIN 1 GM in Sodium Chloride 0.9% 100 ML IVPB SCH (20:00)
[2020-12-21] MEDS: Atorvastatin Calcium 10 MG TAB PO SCH (20:06)
[2020-12-21] MEDS: predniSONE 20 MG TAB PO SCH (20:07)
[2020-12-21] MEDS: Azithromycin 500 MG in Sodium Chloride 0.9% 250 ML 250 ML IVPB SCH (20:51)
[2020-12-22] MEDS ORDERED: predniSONE 20 MG TAB PO SCH (08:00)
[2020-12-22] MEDS: Lisinopril 5 MG TAB PO SCH (08:01)
[2020-12-22] MEDS: Aspirin 325 mg Enteric Coated Tablet PO SCH (08:01)
[2020-12-22] MEDS: predniSONE 20 MG TAB PO SCH ×2 (08:02→20:48)
[2020-12-22] MEDS: levETIRAcetam 500 mg/5 ml Oral Solution PO SCH ×2 (08:02→20:47)
[2020-12-22] MEDS: Atorvastatin Calcium 10 MG TAB PO SCH (20:48)
[2020-12-22] MEDS: Azithromycin 250 MG TAB PO SCH (20:49)
[2020-12-23] MEDS: Aspirin 325 mg Enteric Coated Tablet PO SCH (08:23)
[2020-12-23] MEDS: predniSONE 20 MG TAB PO SCH (08:23)
[2020-12-23] MEDS: levETIRAcetam 500 mg/5 ml Oral Solution PO SCH (08:24)
[2020-12-23] MEDS: Lisinopril 5 MG TAB PO SCH (08:24)
[2020-12-23 12:01] VITALS: BP 136/74; TEMP 98
[2020-12-23] MEDS ORDERED: predniSONE 20 MG TAB PO SCH (15:15)
[2020-12-23] MEDS: Azithromycin 250 MG TAB PO SCH (15:31)
[2020-12-24] MEDS ORDERED: predniSONE 20 MG TAB PO SCH (08:00)
--- NOTE | 2020-12-24 21:38 | DIS ---
DATE OF ADMISSION: 12/19/2020 DATE OF DISCHARGE: 12/23/2020 ATTENDING/PCP: Dr. Rosales. CONSULTATION: None. REASON FOR ADMISSION: Shortness of breath, wheezing. CONDITION ON DISCHARGE: Stable. DISPOSITION: Home. PRIMARY DIAGNOSES: 1. Acute respiratory failure with hypoxia, requiring 02 supplement. improved. 2. Acute exacerbation of chronic obstructive pulmonary disease. 3. Chronic tobacco abuse. 4. Chronic alcohol use. SECONDARY DIAGNOSIS: 1. Hypertension. 2. Seizure disorder. 3. Dyslipidemia. HOME MEDICATIONS: 1. DuoNeb q.4 hours p.r.n. 2. Prednisone 30 mg p.o. b.i.d. for three days, then 20 mg p.o. b.i.d. for next three days, then 20 mg p.o. daily for next three days, then 10 mg p.o. daily for next three days, then 5 mg p.o. daily for next three days, then stop. 3. Lisinopril 5 mg p.o. daily. 4. Proventil HFA one puff q.4 hours p.r.n. 5. Aspirin 325 mg p.o. daily. 6. Pravastatin 40 mg p.o. at bedtime. 7. Levetiracetam 750 mg p.o. b.i.d. DIET: Heart healthy. ACTIVITY: Ad luz. DISCHARGE INSTRUCTIONS: 1. Follow up with Dr. Rosales on December 30, 2020, as scheduled at [facility] in [place]. 2. Tobacco smoking cessation counseling. HISTORY OF THE PRESENT ILLNESS AND HOSPITAL COURSE: Mr. Baldwin is a pleasant 64-year-old male with significant history of COPD, hypertension, seizure disorder, chronic tobacco abuse, and chronic alcohol use. He has been in the hospital a couple of times over the past couple of months secondary to acute COPD exacerbation. The patient was again admitted on 12/19/2020 for the same reason. He reports recurrence of severe acute onset of shortness of breath and wheezing over the past four days prior to this admission. There was no significant chest pain, bloody sputum, or pain with breathing reported. He remains febrile free. The patient has mild acute respiratory distress upon presentation in the ER with reported O2 desaturation requiring O2 supplement per nasal cannula. His initial chest x-ray was unremarkable. There was no significant leukocytosis noted. His cardiac enzyme was less than 0.010 x2 and his lactic acid at 2.2, which trended down to 1.0 on repeat. He was negative for COVID test upon screening. On further observation in the ER, the patient was responding well with DuoNeb and IV steroid, but his O2 remained low requiring continuous O2 supplement. He was then admitted for inpatient management. The patient received Rocephin and azithromycin intravenously for empiric antibiotic treatment. IV steroids and serial bronchodilator and neb treatment were continued in the floor. The patient's symptoms markedly improved over the course.His steroid was eventually switched to oral as well as his antibiotics. Oral steroid was titrated down subsequently. The patient was weaned off from O2 supplements. Prior to discharge, his oxygen level was well maintained, >90% at room air. On 12/23/2020, the patient was deemed clinically stable to go back home. He was highly recommended to stop smoking and to use alcohol in moderation. There were no significant withdrawal symptoms from alcohol use noted during this admission. Patient was placed on extended short term period of oral steroid use post discharged. Vital signs prior to discharge; blood pressure 136/74, temp 98, pulse 68,respirations 20, O2 sats 93% on room air. The patient was examined prior to discharge. He was afebrile with normal breathing and was ambulatory without significant oxygen desaturation nor dyspnea on exertion noted. Job ID: [id number]
[2020-12-27] MEDS ORDERED: predniSONE 20 MG TAB PO SCH (17:00)
[2020-12-30] MEDS ORDERED: predniSONE 20 MG TAB PO SCH (08:00)
[2020-12-31] MEDS ORDERED: predniSONE 20 MG TAB PO SCH (08:00)
[2021-01-04] MEDS ORDERED: predniSONE 5 MG TAB PO SCH (08:00)
== END 2020-12-23 17:09 | disposition home or self-care (01) | DRG 189 ==
LOC: MADERS 18:03 → MADMS 20:31
PROVIDERS: ADMIT Family Medicine; ATTEND Family Medicine
DX: J96.01 Acute respiratory failure with hypoxia (principal); J44.1 Chronic obstructive pulmonary disease with (acute) exacerbation; E78.5 Hyperlipidemia, unspecified; E78.00 Pure hypercholesterolemia, unspecified; I10 Essential (primary) hypertension; F17.210 Nicotine dependence, cigarettes, uncomplicated; F10.10 Alcohol abuse, uncomplicated; Z20.822 Contact with and (suspected) exposure to COVID-19; G40.909 Epilepsy, unspecified, not intractable, without status epilepticus; Z86.73 Personal history of transient ischemic attack (TIA), and cerebral infarction without residual deficits; Z86.74 Personal history of sudden cardiac arrest; Z98.890 Other specified postprocedural states; Z79.82 Long term (current) use of aspirin; Z79.899 Other long term (current) drug therapy; Z79.51 Long term (current) use of inhaled steroids
CPT/HCPCS: 0240U; 36415; 71045; 80053; 81003; 82550; 83605; 84484; 85025; 87040; 87086; 93005; 94640; 94760; 96365; 96367; 96375; J0456; J0696; J2920; J2930; J3475; J3490; J7050; J7512; J7611; J7620

== ENCOUNTER 2021-01-28 11:43 | Outpatient (CLI) | payer MEDICARE ==
[2021-01-28 12:20] LABS: #Basophils 0.2 thou/uL (0.0-0.2); #Eosinphils 0.3 thou/uL (0.0-0.7); #Lymphocytes 2.2 thou/uL (1.20-3.40); #Monocytes 0.6 thou/uL (0.11-0.59); #Neutrophils 3.9 thou/uL (1.40-6.50); %Basophils 2.1 % (0.0-1.0); %Eosinophils 4.3 % (0.0-10.0); %Lymphocytes 30.5 % (21.0-51.0); %Monocytes 8.7 % (0.0-10.0); %Neutrophils 54.3 % (42.0-75.0); Hemoglobin 16.3 g/dL (14.0-18.0); Mean Corpuscular HGB CONC 33.3 g/dL (32.0-36.0); Mean Corpuscular Hemoglobin 31.2 pg (27.0-31.0); Mean Corpuscular Volume 93.7 fL (78.0-98.0); Platelet Count 282 thou/uL (130-400); RBC Distribution Width 11.6 % (11.5-14.5); Red Blood Cell (RBC) Count 5.23 mill/uL (4.70-6.10); White Blood Cell (WBC) Count 7.2 thou/uL (4.8-10.8)
[2021-01-28 13:22] LABS: ALT (SGPT) 13 U/L (8-55); AST (SGOT) 26 U/L (5-34); Albumin 4.4 g/dL (3.4-4.8); Alkaline Phosphatase 76 U/L (40-110); Anion Gap 15 mmol/L (10-20); BUN (Urea Nitrogen) 7 mg/dL (8.4-25.7); Bilirubin, Total 0.6 mg/dL (0.2-1.2); Calc. Creatinine Clearance 0 mL/min (70-130); Carbon Dioxide 28 mmol/L (23-31); Cardiac Risk 2.8 (Less than 4.5); Chloride 100 mmol/L (98-107); Cholesterol 221 mg/dl (< 200 Desired); Globulin 3.6 g/dL (2.4-3.5); Glucose 82 mg/dL (80-115); HDL Cholesterol 79 mg/dL (>60 Neg Risk); LDL Cholesterol, Calculated 129 mg/dL; Potassium 4.6 mmol/L (3.5-5.1); Sodium 138 mmol/L (136-145); Triglycerides 65 mg/dL (Less than 150)
== END 2021-01-28 11:44 | disposition home or self-care (01) ==
LOC: MADLAB 11:43
PROVIDERS: ATTEND Family Medicine
DX: E78.5 Hyperlipidemia, unspecified (principal); D75.89 Other specified diseases of blood and blood-forming organs; I10 Essential (primary) hypertension
CPT/HCPCS: 36415; 80053; 80061; 82607; 82746; 85025

== ENCOUNTER 2021-02-01 14:32 | Emergency (ER) | payer MEDICARE ==
[2021-02-01] MEDS ORDERED: Albuterol Sulfate 2.5 mg/0.5 ml Neb ONE (14:42)
[2021-02-01] MEDS ORDERED: methylPREDNISolone Sod Succ/PF 125 MG/2 ML VIAL ONE (15:11)
[2021-02-01] MEDS ORDERED: Magnesium 2 GM/50 ML BAG (IN WATER) ONE (15:11)
[2021-02-01 15:13] LABS: #Basophils 0.1 thou/uL (0.0-0.2); #Eosinphils 0.5 thou/uL (0.0-0.7); #Lymphocytes 1.7 thou/uL (1.20-3.40); #Monocytes 0.6 thou/uL (0.11-0.59); #Neutrophils 3.8 thou/uL (1.40-6.50); %Basophils 1.6 % (0.0-1.0); %Eosinophils 7.5 % (0.0-10.0); %Lymphocytes 25.8 % (21.0-51.0); %Monocytes 8.3 % (0.0-10.0); %Neutrophils 56.8 % (42.0-75.0); Hemoglobin 15.4 g/dL (14.0-18.0); Mean Corpuscular HGB CONC 33.6 g/dL (32.0-36.0); Mean Corpuscular Hemoglobin 31.6 pg (27.0-31.0); Mean Platelet Volume 6.4 fL (7.4-10.4); Platelet Count 258 thou/uL (130-400); RBC Distribution Width 12.1 % (11.5-14.5); Red Blood Cell (RBC) Count 4.88 mill/uL (4.70-6.10); White Blood Cell (WBC) Count 6.8 thou/uL (4.8-10.8)
[2021-02-01 15:18] LABS: ALT (SGPT) 12 U/L (8-55); AST (SGOT) 19 U/L (5-34); Albumin 4.1 g/dL (3.4-4.8); Alkaline Phosphatase 75 U/L (40-110); Anion Gap 15 mmol/L (10-20); BUN (Urea Nitrogen) 9 mg/dL (8.4-25.7); Bilirubin, Total 0.4 mg/dL (0.2-1.2); CK (CPK) 43 U/L (30-200); Calc. Creatinine Clearance 0 mL/min (70-130); Calcium 9.7 mg/dL (7.8-10.44); Carbon Dioxide 28 mmol/L (23-31); Chloride 103 mmol/L (98-107); Globulin 3.3 g/dL (2.4-3.5); Glucose 196 mg/dL (80-115); Potassium 4.1 mmol/L (3.5-5.1); Protein, Total 7.4 g/dL (5.8-8.1); Sodium 142 mmol/L (136-145)
[2021-02-01] MEDS ORDERED: cefTRIAXone\\ROCEPHIN 1 GM VIAL ONE (16:11)
[2021-02-01] MEDS ORDERED: Sodium Chloride 0.9% 100 ML ONE (16:11)
[2021-02-01] MEDS ORDERED: Azithromycin 500 MG VIAL ONE (16:48)
[2021-02-01] MEDS ORDERED: Sodium Chloride 0.9% 2,000 ML ONE (16:48)
[2021-02-01] MEDS ORDERED: Sodium Chloride 0.9% 250 ML 250 ML ONE (16:48)
[2021-02-01 17:58] LABS: SARS-CoV-2 NAA Rapid Test Not Detected (NotDetected)
== END 2021-02-01 17:13 | disposition short-term general hospital (02) ==
LOC: MADERS 14:32
DX: J44.1 Chronic obstructive pulmonary disease with (acute) exacerbation (principal); E78.5 Hyperlipidemia, unspecified; E78.00 Pure hypercholesterolemia, unspecified; I10 Essential (primary) hypertension; F17.210 Nicotine dependence, cigarettes, uncomplicated; Z86.73 Personal history of transient ischemic attack (TIA), and cerebral infarction without residual deficits; Z79.899 Other long term (current) drug therapy; Z79.82 Long term (current) use of aspirin
CPT/HCPCS: 0240U; 71045; 80053; 82550; 83605; 84484; 85025; 87040; 93005; 94640; 94760; 36415; 96365; 96367; 96375; J0456; J0696; J2930; J3475; J3490; J7050; J7611; J7620

== ENCOUNTER 2021-02-15 15:52 | Emergency (ER) | payer MEDICARE ==
[2021-02-15] MEDS ORDERED: predniSONE 20 MG TAB ONE (17:03)
== END 2021-02-15 17:15 | disposition home or self-care (01) ==
LOC: MADERS 15:52
DX: J44.1 Chronic obstructive pulmonary disease with (acute) exacerbation (principal); E78.5 Hyperlipidemia, unspecified; E78.00 Pure hypercholesterolemia, unspecified; I10 Essential (primary) hypertension; F17.210 Nicotine dependence, cigarettes, uncomplicated; Z86.73 Personal history of transient ischemic attack (TIA), and cerebral infarction without residual deficits; Z79.82 Long term (current) use of aspirin; Z79.899 Other long term (current) drug therapy
CPT/HCPCS: 71046; J7512; J7620

== ENCOUNTER 2022-07-06 11:36 | Emergency (ER) | payer MEDICARE ==
[2022-07-06 12:30] LABS: #Basophils 0.1 thou/uL (0.0-0.2); #Eosinphils 0.9 thou/uL (0.0-0.7); #Lymphocytes 1.5 thou/uL (1.20-3.40); #Monocytes 0.7 thou/uL (0.11-0.59); %Basophils 1.3 % (0.0-1.0); %Eosinophils 11.3 % (0.0-10.0); %Lymphocytes 17.8 % (21.0-51.0); %Monocytes 8.2 % (0.0-10.0); %Neutrophils 61.5 % (42.0-75.0); Hemoglobin 13.5 g/dL (14.0-18.0); Mean Corpuscular HGB CONC 31.9 g/dL (32.0-36.0); Mean Corpuscular Hemoglobin 30.8 pg (27.0-31.0); Mean Corpuscular Volume 96.4 fL (78.0-98.0); Mean Platelet Volume 7.7 fL (7.4-10.4); Platelet Count 251 thou/uL (130-400); RBC Distribution Width 10.9 % (11.5-14.5); Red Blood Cell (RBC) Count 4.39 mill/uL (4.70-6.10); White Blood Cell (WBC) Count 8.2 thou/uL (4.8-10.8)
[2022-07-06 12:44] LABS: ALT (SGPT) 8 U/L (8-55); AST (SGOT) 16 U/L (5-34); Albumin 4.6 g/dL (3.4-4.8); Alkaline Phosphatase 58 U/L (40-110); Anion Gap 13 mmol/L (10-20); BUN (Urea Nitrogen) 22 mg/dL (8.4-25.7); Bilirubin, Total 0.5 mg/dL (0.2-1.2); CK (CPK) 103 U/L (30-200); Calc. Creatinine Clearance 0 mL/min (70-130); Calcium 10.2 mg/dL (7.8-10.44); Carbon Dioxide 27 mmol/L (23-31); Chloride 99 mmol/L (98-107); Estimated GFR 64; Glucose 98 mg/dL (80-115); Potassium 4.3 mmol/L (3.5-5.1); Protein, Total 8.6 g/dL (5.8-8.1); Sodium 135 mmol/L (136-145)
[2022-07-06] MEDS ORDERED: methylPREDNISolone Sod Succ/PF 125 MG/2 ML VIAL ONE ×2 (13:04→13:08)
[2022-07-06] MEDS ORDERED: Azithromycin 500 MG VIAL ONE (14:47)
[2022-07-06] MEDS ORDERED: cefTRIAXone\\ROCEPHIN 2 GM VIAL ONE (14:47)
[2022-07-06] MEDS ORDERED: Sodium Chloride 0.9% 100 ML ONE (14:47)
[2022-07-06] MEDS ORDERED: Sodium Chloride 0.9% 250 ML 250 ML ONE (14:47)
[2022-07-06 15:16] LABS: SARS-CoV-2 NAA Rapid Test Not Detected (NotDetected)
== END 2022-07-06 20:00 | disposition short-term general hospital (02) ==
LOC: MADERS 11:36
DX: J44.1 Chronic obstructive pulmonary disease with (acute) exacerbation (principal); R09.02 Hypoxemia; I10 Essential (primary) hypertension; E78.5 Hyperlipidemia, unspecified; E78.00 Pure hypercholesterolemia, unspecified; G40.409 Other generalized epilepsy and epileptic syndromes, not intractable, without status epilepticus; F17.210 Nicotine dependence, cigarettes, uncomplicated; Z20.822 Contact with and (suspected) exposure to COVID-19; Z86.73 Personal history of transient ischemic attack (TIA), and cerebral infarction without residual deficits; Z79.82 Long term (current) use of aspirin; Z79.899 Other long term (current) drug therapy
CPT/HCPCS: 71045; 80053; 82550; 83880; 84484; 85025; 85379; 86140; 87804 ×2; 93005; 96365; 96367; 96375; 99285; U0002; J0456; J0696; J2930; J3490; J7050; J7620

== ENCOUNTER 2022-08-21 16:17 | Emergency (ER) | payer MEDICARE ==
[2022-08-21] MEDS ORDERED: Nitroglycerin 0.4 MG TAB 1 EACH ONE (16:30)
[2022-08-21 16:57] LABS: #Basophils 0.1 thou/uL (0.0-0.2); #Eosinphils 0.8 thou/uL (0.0-0.7); #Lymphocytes 1.5 thou/uL (1.20-3.40); #Monocytes 0.6 thou/uL (0.11-0.59); #Neutrophils 4.1 thou/uL (1.40-6.50); %Eosinophils 11.3 % (0.0-10.0); %Lymphocytes 20.9 % (21.0-51.0); %Monocytes 8.3 % (0.0-10.0); %Neutrophils 57.6 % (42.0-75.0); Hemoglobin 13.4 g/dL (14.0-18.0); Mean Corpuscular HGB CONC 33.6 g/dL (32.0-36.0); Mean Corpuscular Hemoglobin 32.1 pg (27.0-31.0); Mean Corpuscular Volume 95.6 fL (78.0-98.0); Mean Platelet Volume 7.6 fL (7.4-10.4); Platelet Count 201 thou/uL (130-400); RBC Distribution Width 10.7 % (11.5-14.5); Red Blood Cell (RBC) Count 4.18 mill/uL (4.70-6.10); White Blood Cell (WBC) Count 7.1 thou/uL (4.8-10.8)
[2022-08-21 17:11] LABS: ALT (SGPT) 8 U/L (8-55); AST (SGOT) 15 U/L (5-34); Albumin 3.9 g/dL (3.4-4.8); Alcohol Less than 10 mg/dL (Less than 10); Alkaline Phosphatase 54 U/L (40-110); Anion Gap 11 mmol/L (10-20); BUN (Urea Nitrogen) 13 mg/dL (8.4-25.7); Bilirubin, Total 0.4 mg/dL (0.2-1.2); Calc. Creatinine Clearance 0 mL/min (70-130); Calcium 9.8 mg/dL (7.8-10.44); Carbon Dioxide 27 mmol/L (23-31); Chloride 105 mmol/L (98-107); Estimated GFR 94; Globulin 3.4 g/dL (2.4-3.5); Glucose 101 mg/dL (80-115); Magnesium 1.6 mg/dL (1.6-2.6); Potassium 4.3 mmol/L (3.5-5.1); Protein, Total 7.3 g/dL (5.8-8.1); Sodium 139 mmol/L (136-145)
[2022-08-21 17:32] LABS: SARS-CoV-2 NAA Rapid Test Not Detected (NotDetected)
== END 2022-08-21 18:30 | disposition short-term general hospital (02) ==
LOC: MADERS 16:17
DX: J44.1 Chronic obstructive pulmonary disease with (acute) exacerbation (principal); E78.00 Pure hypercholesterolemia, unspecified; I10 Essential (primary) hypertension; F17.210 Nicotine dependence, cigarettes, uncomplicated; R56.9 Unspecified convulsions; Z86.73 Personal history of transient ischemic attack (TIA), and cerebral infarction without residual deficits; Z79.899 Other long term (current) drug therapy; Z20.822 Contact with and (suspected) exposure to COVID-19
CPT/HCPCS: 71045; 80053; 80307; 83735; 83880; 84484; 85025; 93005; U0002; 36415; J7620

== ENCOUNTER 2023-09-16 02:34 | Emergency (ER) | payer MEDICARE ==
[2023-09-16] MEDS ORDERED: Ipratropium/Albuterol 3 ML NEB ONE (03:02)
[2023-09-16 03:17] LABS: #Basophils 0.1 thou/uL (0.0-0.2); #Eosinphils 0.6 thou/uL (0.0-0.7); #Lymphocytes 1.6 thou/uL (1.20-3.40); #Monocytes 0.5 thou/uL (0.11-0.59); #Neutrophils 4.7 thou/uL (1.40-6.50); %Basophils 1.3 % (0.0-1.0); %Eosinophils 7.7 % (0.0-10.0); %Lymphocytes 21.1 % (21.0-51.0); %Monocytes 7.1 % (0.0-10.0); %Neutrophils 62.7 % (42.0-75.0); Hematocrit 41.4 % (42.0-52.0); Hemoglobin 14.1 g/dL (14.0-18.0); Mean Corpuscular HGB CONC 34.1 g/dL (32.0-36.0); Mean Corpuscular Hemoglobin 32.9 pg (27.0-31.0); Mean Corpuscular Volume 96.6 fl (78.0-98.0); Mean Platelet Volume 7.4 fL (7.4-10.4); Platelet Count 191 10x3/uL (130-400); RBC Distribution Width 11.7 % (11.5-14.5); Red Blood Cell (RBC) Count 4.29 mill/uL (4.70-6.10); White Blood Cell (WBC) Count 7.5 10x3/uL (4.8-10.8)
[2023-09-16 03:33] LABS: Bicarbonate (HCO3v) 24.1 mmol/L (22.0-28.0); CO2 Tension (PvCO2) 36.7 mmHg (42.0-51.0); Calcium, Ionized 1.15 mmol/L (1.15-1.33); Chloride 105 mmol/L (98-107); Hemoglobin - Calc 14.5 g/dL (14.0-18.0); Potassium 3.6 mmol/L (3.5-5.1); Sodium 141 mmol/L (138-145); T. Carbon Dioxide 25.2 mmol/L (22.0-28.0); vO2 Saturation-calc 99.2 % (60.0-85.0)
[2023-09-16 03:35] LABS: ALT (SGPT) 13 U/L (8-55); AST (SGOT) 16 U/L (5-34); Albumin 4.1 g/dL (3.4-4.8); Alkaline Phosphatase 59 U/L (40-110); Anion Gap 16 mmol/L (10-20); BUN (Urea Nitrogen) 21 mg/dL (8.4-25.7); Bilirubin, Total 0.6 mg/dL (0.2-1.2); Calc. Creatinine Clearance 0 mL/min (70-130); Calcium 9.5 mg/dL (7.8-10.44); Chloride 106 mmol/L (98-107); Estimated GFR 94; Globulin 3.8 g/dL (2.4-3.5); Glucose 123 mg/dL (80-115); Potassium 3.7 mmol/L (3.5-5.1); Protein, Total 7.9 g/dL (5.8-8.1); Sodium 139 mmol/L (136-145)
[2023-09-16 03:41] LABS: Troponin I Less than 0.010 ng/mL (< 0.028)
[2023-09-16 03:42] LABS: Carbon Dioxide 21 mmol/L (23-31)
[2023-09-16] MEDS ORDERED: Lisinopril 10 MG TAB ONE (03:46)
== END 2023-09-16 04:56 | disposition short-term general hospital (02) ==
LOC: MADERS 02:34
DX: J44.1 Chronic obstructive pulmonary disease with (acute) exacerbation (principal); I10 Essential (primary) hypertension; R09.02 Hypoxemia; F17.210 Nicotine dependence, cigarettes, uncomplicated; G40.409 Other generalized epilepsy and epileptic syndromes, not intractable, without status epilepticus; Z86.73 Personal history of transient ischemic attack (TIA), and cerebral infarction without residual deficits; Z79.82 Long term (current) use of aspirin; Z79.899 Other long term (current) drug therapy
CPT/HCPCS: 36415; 71045; 80053; 82330; 82803; 84484; 85025; 93005; 94640; J7620

== ENCOUNTER 2024-01-02 12:18 | Emergency (ER) | payer MEDICARE, SELFPAY ==
[2024-01-02] MEDS ORDERED: Ipratropium/Albuterol 3 ML NEB ONE ×3 (12:31→13:46)
[2024-01-02] MEDS ORDERED: Acetaminophen 500 MG TAB ONE (12:53)
[2024-01-02] MEDS ORDERED: Ketorolac Tromethamine 30 MG (1 mL) VIAL ONE (12:53)
[2024-01-02] MEDS ORDERED: methylPREDNISolone Sod Succ/PF 125 MG/2 ML VIAL ONE (12:53)
[2024-01-02] MEDS ORDERED: Sodium Chloride 0.9% 1,000 ML ONE (12:53)
[2024-01-02 13:15] LABS: Base Excess-Venous 1.4 mmol/L (-2.0 to 3.0); Bicarbonate (HCO3v) 26.3 mmol/L (22.0-28.0); CO2 Tension (PvCO2) 41.5 mmHg (42.0-51.0); Calcium, Ionized 0.96 mmol/L (1.15-1.33); Chloride 104 mmol/L (98-107); Sodium 129 mmol/L (138-145); T. Carbon Dioxide 27.5 mmol/L (22.0-28.0); vO2 Saturation-calc 98.7 % (60.0-85.0)
[2024-01-02 13:23] LABS: ALT (SGPT) 14 U/L (8-55); AST (SGOT) 21 U/L (5-34); Albumin 3.7 g/dL (3.4-4.8); Alkaline Phosphatase 60 U/L (40-110); Anion Gap 15 mmol/L (10-20); BUN (Urea Nitrogen) 15 mg/dL (8.4-25.7); Bilirubin, Total 0.3 mg/dL (0.2-1.2); Calc. Creatinine Clearance 0 mL/min (70-130); Calcium 8.8 mg/dL (7.8-10.44); Carbon Dioxide 25 mmol/L (23-31); Chloride 102 mmol/L (98-107); Estimated GFR 86; Globulin 3.3 g/dL (2.4-3.5); Glucose 109 mg/dL (80-115); Magnesium 1.4 mg/dL (1.6-2.6); Potassium 4.5 mmol/L (3.5-5.1); Sodium 137 mmol/L (136-145)
[2024-01-02 13:28] LABS: Band 1 % (5-11); Eosinophils 2 % (0-10); Hematocrit 35.7 % (42.0-52.0); Hemoglobin 12.2 g/dL (14.0-18.0); Lymphocytes 2 % (21-51); MDiff Complete? YES; Manual Diff?? YES; Mean Corpuscular Hemoglobin 31.9 pg (27.0-31.0); Mean Corpuscular Volume 93.9 fl (78.0-98.0); Mean Platelet Volume 8.3 fL (7.4-10.4); Monocytes 7 % (0-10); Neutrophil 88 % (42-75); Platelet Count 246 10x3/uL (130-400); RBC Distribution Width 12.3 % (11.5-14.5); RBC Morph Comment Within Normal Limits; Red Blood Cell (RBC) Count 3.81 mill/uL (4.70-6.10); White Blood Cell (WBC) Count 6.2 10x3/uL (4.8-10.8)
[2024-01-02 13:29] LABS: Platelet Adequacy Comment Appears Adequate
[2024-01-02 13:44] LABS: Troponin I Less than 0.010 ng/mL (< 0.028)
[2024-01-02] MEDS ORDERED: Magnesium 2 GM/50 ML BAG (IN WATER) ONE (13:47)
[2024-01-02 13:54] LABS: SARS-CoV-2 NAA Rapid Test Not Detected (NotDetected)
[2024-01-02] MEDS ORDERED: Oseltamivir 75 MG CAP ONE (13:59)
== END 2024-01-02 16:04 | disposition short-term general hospital (02) ==
LOC: MADERS 12:18
DX: A41.9 Sepsis, unspecified organism (principal); J44.1 Chronic obstructive pulmonary disease with (acute) exacerbation; J10.1 Influenza due to other identified influenza virus with other respiratory manifestations; I10 Essential (primary) hypertension; E78.00 Pure hypercholesterolemia, unspecified; Z79.899 Other long term (current) drug therapy; Z79.82 Long term (current) use of aspirin; F17.210 Nicotine dependence, cigarettes, uncomplicated
CPT/HCPCS: 0241U; 36415; 71045; 80053; 82330; 82803; 83605; 83735; 83880; 84484; 85025; 87040; 93005; 94660; 96365; 96375; J1885; J2930; J3475; J7050; J7620

== ENCOUNTER 2024-11-20 15:38 | Emergency (ER) | payer MEDICARE, SELFPAY ==
[2024-11-20] MEDS ORDERED: Ketorolac Tromethamine 30 MG (1 mL) VIAL ONE (16:40)
== END 2024-11-20 17:23 | disposition home or self-care (01) ==
LOC: MADERS 15:38
DX: M25.552 Pain in left hip (principal); F17.210 Nicotine dependence, cigarettes, uncomplicated; J44.9 Chronic obstructive pulmonary disease, unspecified; I25.2 Old myocardial infarction; E78.00 Pure hypercholesterolemia, unspecified; Z55.6 Problems related to health literacy; Z79.82 Long term (current) use of aspirin; Z79.899 Other long term (current) drug therapy
CPT/HCPCS: 72170; 96372; 99283; J1885

== ENCOUNTER 2024-11-21 09:27 | Emergency (ER) | payer SELFPAY ==
[2024-11-21] MEDS ORDERED: Lidocaine 1% PF 5 ML VIAL ONE (10:36)
[2024-11-21] MEDS ORDERED: methylPREDNISolone Sod Succ/PF 125 MG/2 ML VIAL ONE (10:36)
== END 2024-11-21 11:25 | disposition home or self-care (01) ==
LOC: MADERS 09:27
DX: M25.552 Pain in left hip (principal); I10 Essential (primary) hypertension; I25.2 Old myocardial infarction; E78.5 Hyperlipidemia, unspecified; J44.9 Chronic obstructive pulmonary disease, unspecified; F17.210 Nicotine dependence, cigarettes, uncomplicated; Z86.73 Personal history of transient ischemic attack (TIA), and cerebral infarction without residual deficits; W17.89XA Other fall from one level to another, initial encounter; Y93.89 Activity, other specified
CPT/HCPCS: 96372; 99283; J2919

== ENCOUNTER 2024-12-11 16:15 | Emergency (ER) | payer SELFPAY ==
[2024-12-11] MEDS ORDERED: traMADol HCl 50 MG TAB ONE (16:48)
[2024-12-11] MEDS ORDERED: Ketorolac Tromethamine 30 MG (1 mL) VIAL ONE (16:48)
== END 2024-12-11 18:18 | disposition home or self-care (01) ==
LOC: MADERS 16:15
DX: M25.552 Pain in left hip (principal); I10 Essential (primary) hypertension; F17.210 Nicotine dependence, cigarettes, uncomplicated; J44.9 Chronic obstructive pulmonary disease, unspecified; E78.00 Pure hypercholesterolemia, unspecified; Z79.82 Long term (current) use of aspirin; Z79.899 Other long term (current) drug therapy; Z79.51 Long term (current) use of inhaled steroids
CPT/HCPCS: 96372; J1885

== ENCOUNTER 2024-12-12 15:43 | Emergency (ER) | payer SELFPAY ==
[~2024-12-12 15:43] MED LIST changes: +Iopamidol 370 76% 100 ML VIAL ONE
[2024-12-12 16:17] LABS: #Basophils 0.1 thou/uL (0.0-0.2); #Eosinophils 0.2 thou/uL (0.0-0.7); #Lymphocytes 1.9 thou/uL (1.20-3.40); #Monocytes 0.7 thou/uL (0.11-0.59); #Neutrophils 5.5 thou/uL (1.40-6.50); %Basophils 1.3 % (0.0-1.0); %Lymphocytes 22.3 % (21.0-51.0); %Monocytes 8.1 % (0.0-10.0); %Neutrophils 66.3 % (42.0-75.0); Hematocrit 46.6 % (42.0-52.0); Hemoglobin 15.1 g/dL (14.0-18.0); Mean Corpuscular HGB CONC 32.4 g/dL (32.0-36.0); Mean Corpuscular Hemoglobin 29.9 pg (27.0-31.0); Mean Corpuscular Volume 92.3 fl (78.0-98.0); Mean Platelet Volume 6.9 fL (7.4-10.4); Platelet Count 285 10x3/uL (130-400); RBC Distribution Width 11.8 % (11.5-14.5); Red Blood Cell (RBC) Count 5.04 mill/uL (4.70-6.10); White Blood Cell (WBC) Count 8.3 10x3/uL (4.8-10.8)
[2024-12-12 16:20] LABS: INR-International Normal Ratio 0.9; Prothrombin Time 12.6 sec (12.0-14.7)
[2024-12-12 16:27] LABS: ALT (SGPT) 12 U/L (8-55); AST (SGOT) 14 U/L (5-34); Albumin 3.9 g/dL (3.4-4.8); Alkaline Phosphatase 60 U/L (40-110); Anion Gap 19 mmol/L (10-20); BUN (Urea Nitrogen) 19 mg/dL (8.4-25.7); Bilirubin, Total 0.6 mg/dL (0.2-1.2); Calc. Creatinine Clearance 0 mL/min (70-130); Calcium 10.4 mg/dL (7.8-10.44); Carbon Dioxide 22 mmol/L (23-31); Chloride 99 mmol/L (98-107); Estimated GFR 68; Globulin 3.9 g/dL (2.4-3.5); Glucose 91 mg/dL (80-115); PTT 21.5 sec (22.9-36.1); Potassium 4.2 mmol/L (3.5-5.1); Protein, Total 7.8 g/dL (5.8-8.1); Sodium 136 mmol/L (136-145)
[2024-12-12 16:35] LABS: Troponin I 0.019 ng/mL (< 0.028)
[2024-12-12] MEDS ORDERED: Aspirin Chewable 81 MG TAB ONE (17:08)
[2024-12-12] MEDS ORDERED: traMADol HCl 50 MG TAB ONE (18:06)
== END 2024-12-12 18:58 | disposition short-term general hospital (02) ==
LOC: MADERS 15:43
DX: I63.9 Cerebral infarction, unspecified (principal); G89.29 Other chronic pain; M25.552 Pain in left hip; M62.81 Muscle weakness (generalized); R29.705 NIHSS score 5; I25.2 Old myocardial infarction; E78.5 Hyperlipidemia, unspecified; I10 Essential (primary) hypertension; J44.9 Chronic obstructive pulmonary disease, unspecified; R56.9 Unspecified convulsions; F17.210 Nicotine dependence, cigarettes, uncomplicated; Z79.82 Long term (current) use of aspirin; Z79.899 Other long term (current) drug therapy
CPT/HCPCS: 36415; 36416; 70450; 70496; 70498; 71045; 80053; 84484; 85025; 85610; 85730; 93005; 94760; Q9967

== ENCOUNTER 2024-12-20 16:19 | Emergency (ER) | payer MEDICARE, SELFPAY ==
[2024-12-20] MEDS ORDERED: fentaNYL 50 mcg/mL 1 mL Vial ONE (16:31)
[2024-12-20] MEDS ORDERED: Ketorolac Tromethamine 30 MG (1 mL) VIAL ONE (16:31)
== END 2024-12-20 17:05 | disposition home or self-care (01) ==
LOC: MADERS 16:19
DX: M25.552 Pain in left hip (principal); I10 Essential (primary) hypertension; F17.210 Nicotine dependence, cigarettes, uncomplicated
CPT/HCPCS: 96372; 99283; J1885; J3010

== ENCOUNTER 2024-12-27 22:34 | Emergency (ER) | payer MEDICARE ==
[2024-12-27] MEDS ORDERED: Lorazepam 1 MG TAB ONE (23:38)
[2024-12-27] MEDS ORDERED: Ketorolac Tromethamine 30 MG (1 mL) VIAL ONE (23:38)
[2024-12-27] MEDS ORDERED: predniSONE 20 MG TAB ONE (23:41)
== END 2024-12-28 00:09 | disposition home or self-care (01) ==
LOC: MADERS 22:34
DX: M25.552 Pain in left hip (principal); M54.50 Low back pain, unspecified; J44.9 Chronic obstructive pulmonary disease, unspecified; I10 Essential (primary) hypertension; F17.210 Nicotine dependence, cigarettes, uncomplicated; Z79.899 Other long term (current) drug therapy; Z86.69 Personal history of other diseases of the nervous system and sense organs
CPT/HCPCS: 93005; 96372; 99283; J1885; J7512